=== PATIENT | male | born 1950 | race Caucasian/White ===

== ENCOUNTER → 2018-06-13 | Outpatient (CLI) | payer OTHER ==
[~2018-06-13] VITALS: Ht 172.7 cm; Wt 68.9 kg
[~2018-06-13] MED LIST: ARICEPT 5 MG TAB5 MG PO; ASPIR 8181 MG PO; CARBAMAZEPINE200 M2 PO; CARBAMAZEPINE200 M3 PO; CARBIDOPA-LEVO1 EAC9 PO; DEPLIN-ALGAL O1 EAC1 PO; FLOMAX0.4 MG PO; LIPITOR 20 MG T20 M1 PO; LITHIUM8 MEQ/5 M1 PO; MELATONIN3 MG PO; PLAVIX 75 MG TA75 M1 PO; SINEMET 25-1001 EAC1 PO; SONATA5 M1 PO; SYNTHROID125 MC1 PO; VENTOLIN HFA 1818 GM INH; XANAX 0.25 MG0.25 MG PO; XANAX 0.5 MG0.5 MG PO
[2018-06-13 08:46] LABS: HEMATOCRIT 44.6 % (42.0-52.0); HEMOGLOBIN 15.1 gm/dL (14.0-18.0); MCHC 33.8 g/dL (28.0-37.0); MCV 97.4 fL (80.0-100.0); RBC 4.58 mil/uL (4.50-6.00); WBC 9.6 thou/uL (4.0-11.0)
[2018-06-13 08:54] LABS: CREATININE 1.4 mg/dL (0.7-1.3); POTASSIUM 4.7 mmol/L (3.5-5.1)
[2018-06-13 09:17] VITALS: BP 136/79
--- NOTE | 2018-06-13 15:00 | EKG ---
[place] [address] [facility] [place] [address] ELECTROCARDIOGRAM REPORT Name: YVONNE JORGENSEN Room #: REG CLI [id number] ������������������ Admission: 06/13/18 ������������������ Attend Phys: Isak Del Angel MD, Discharge: ������������������ Date of : 48 Report #: [id number] ����������������������������������������������������������������� [id number] THIS REPORT FOR: //name// [facility] Test Date: 2018-06-13 Test Time: 08:55:52 Pat Name: YVONNE JORGENSEN Department: Room: 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[employer] : 1950 Requested By: Isak Del Angel Order Number: [id number] MD: Shiraz Noble Measurements Intervals [place] Rate: 79 P: 79 NH: 156 QRS: 79 QRSD: 92 T: 73 QT: 361 QTc: 414 Interpretive Statements Sinus rhythm Abnormal R-wave progression, early transition No previous ECG available for comparison Electronically Signed On 06-13-2018 14:59:56 MRI TECHNOLOGIST by Shiraz Noble [email or web address] ��������������������������������������������� <ELECTRONICALLY SIGNED> ���������������������������������������� By: Shiraz Noble MD ��������������������������������������������� 06/13/18 1459 0855 08 Shiraz Noble MD /HARRISON
--- NOTE | 2018-06-14 13:55 | CATHLAB ---
[facility] [address] [place] [address] INVASIVE PROCEDURE REPORT Name: YVONNE JORGENSEN Room #: REG Reji#: [id number] ������������� Admission: 06/13/18 ������������� Attend Phys: Isak Del Angel, Discharge: ��� ������������� ��� Date of : 48 Date of Service: 06/14/18 1355 �� Report #: [id number] �������� ��������������������������������������������[id number] THIS REPORT FOR: //name// APPROVED REPORT Study performed: 06/13/2018 12:23:54 Patient Details Patient Status: Out-Patient Room #: The patient is a 67 year-old male Event Personnel Isak Del Angel Weight Recorder, Pat Fernandez, KATHERINE Monitor, Adelina Stoddard Monitor, Bjorn Hitchcock RN, Lele Macedo RN RN, Luis Alfredo Horvath Monitor Procedures Performed Left Heart Cath w/or w/o Coronaries [id number] [facility] Indication Chest pain Procedure Narrative A 6F Fish SHEATH sheath was inserted into the RFA^. Coronary angiography was performed using coronary diagnostic catheters. The right coronary system was accessed and visualized with a JR4 catheter. The left coronary system was accessed and visualized with a JL4 catheter. The left ventricle was accessed and visualized with a PIGTAIL catheter. Left ventricular/Aortic Valve gradient assessed . Left ventriculogram was performed in 30 degree projection. Closure device was deployed with a 6 Fr 6F Fish closure. The patient tolerated the procedure well and there were no complications associated with the procedure. There was no hematoma. Intraoperative Conscious Sedation Sedation start time: 13.12 Case end Time: 13.33 Fentanyl mcg Versed 3 mg Fluoro Time: 9.41 minutes Dose: DAP 6567.80 cGycm2 221 mGy Contrast Type and Amount: Visipaque 87 ml Hemodynamics The aortic pressure is 162/77 mmHg with a mean of 104 mmHg. The left [facility] [address] [place] [address] INVASIVE PROCEDURE REPORT Name: YVONNE JORGENSEN [place] Room #: [facility] Mendoza#: [id number] ������������� Admission: 06/13/18 ������������� Attend Phys: Isak Del Angel, Discharge: ��� ������������� ��� Date of : 48 Date of Service: 06/14/18 1355 �� Report #: [id number] �������� ��������������������������������������������[id number] ventricular pressure is 158/11 mmHg with a mean of mmHg. The left ventricular end diastolic pressure is 31 mmHg. PCI Technique Lesion Percutaneous coronary intervention was performed on the Mid com femoral. Conclusion #1 left main free of disease giving rise to LAD and circumflex #2 LAD extends around the apex with mild irregularity. 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 #4 a smaller but anatomicallyco- dominant right coronary artery with an eccentric 3040% mid vessel lesion giving rise to a small PDA #5 normal left ventricular size and systolic function EF 60% Recommendations and plan continue aggressive risk factor modification. No coronary intervention indicated. Follow post peripheral intervention protocol See Dr. Ruiz note ��������������������������������������������� <ELECTRONICALLY SIGNED> ���������������������������������������� By: Isak Del Angel MD, FACC ��������������������������������������������� 06/14/18 1355 1355 1355 Isak Del Angel MD, FACC /INF
== END | disposition home or self-care (01) ==
LOC: CATH 08:17
PROVIDERS: Internal Medicine Cardiovascular Disease
DX: I25.10 Atherosclerotic heart disease of native coronary artery without angina pectoris (principal); I70.212 Atherosclerosis of native arteries of extremities with intermittent claudication, left leg; I70.1 Atherosclerosis of renal artery; E78.00 Pure hypercholesterolemia, unspecified; J44.9 Chronic obstructive pulmonary disease, unspecified; F31.89 Other bipolar disorder; E78.5 Hyperlipidemia, unspecified; F17.210 Nicotine dependence, cigarettes, uncomplicated; Z95.5 Presence of coronary angioplasty implant and graft; Z79.899 Other long term (current) drug therapy; Z79.82 Long term (current) use of aspirin; Z98.890 Other specified postprocedural states

== ENCOUNTER → 2019-05-11 | Outpatient (CLI) | payer OTHER ==
[~2019-05-11] MED LIST changes: +NEURONTIN 300M300 M2 PO; +PROPECIA1 MG PO
== END ==
LOC: SJCVCIMAG 09:01
DX: I65.23 Occlusion and stenosis of bilateral carotid arteries (principal); I73.9 Peripheral vascular disease, unspecified; I25.10 Atherosclerotic heart disease of native coronary artery without angina pectoris; E78.00 Pure hypercholesterolemia, unspecified; F17.210 Nicotine dependence, cigarettes, uncomplicated

== ENCOUNTER → 2019-05-18 | Outpatient (CLI) | payer OTHER ==
[~2019-05-18] VITALS: Ht 172.7 cm; Wt 65.8 kg
[2019-05-18 12:06] VITALS: BP 143/84
[2019-05-18 12:23] LABS: HEMATOCRIT 43.3 % (42.0-52.0); HEMOGLOBIN 14.1 gm/dL (14.0-18.0); MCHC 32.6 g/dL (28.0-37.0); MCV 95.4 fL (80.0-100.0); RBC 4.54 mil/uL (4.50-6.00); RDW 15.8 % (10.5-14.5); WBC 7.9 thou/uL (4.0-11.0)
[2019-05-18 12:30] LABS: CALCIUM 9.8 mg/dL (8.5-10.1); CREATININE 1.2 mg/dL (0.7-1.3); POTASSIUM 4.7 mmol/L (3.5-5.1)
== END | disposition home or self-care (01) ==
LOC: CATH 11:39
PROVIDERS: Nuclear Medicine Nuclear Cardiology
DX: I70.211 Atherosclerosis of native arteries of extremities with intermittent claudication, right leg (principal); I70.1 Atherosclerosis of renal artery; I10 Essential (primary) hypertension; I25.10 Atherosclerotic heart disease of native coronary artery without angina pectoris; J44.9 Chronic obstructive pulmonary disease, unspecified; E78.00 Pure hypercholesterolemia, unspecified; F32.1 Major depressive disorder, single episode, moderate; F17.210 Nicotine dependence, cigarettes, uncomplicated; Z98.890 Other specified postprocedural states; Z79.82 Long term (current) use of aspirin; Z79.899 Other long term (current) drug therapy

== ENCOUNTER → 2019-10-24 | Outpatient (CLI) | payer OTHER | LOC: SJCVCIMAG 10:03 | PROVIDERS: ATTEND Nuclear Medicine Nuclear Cardiology | DX: M71.21 Synovial cyst of popliteal space [Baker], right knee (principal); M79.605 Pain in left leg; I25.10 Atherosclerotic heart disease of native coronary artery without angina pectoris; E78.00 Pure hypercholesterolemia, unspecified; J44.9 Chronic obstructive pulmonary disease, unspecified; G20 Parkinson's disease; F17.210 Nicotine dependence, cigarettes, uncomplicated; Z95.820 Peripheral vascular angioplasty status with implants and grafts; Z82.49 Family history of ischemic heart disease and other diseases of the circulatory system; Z79.899 Other long term (current) drug therapy; Z79.82 Long term (current) use of aspirin ==